=== PATIENT | female | born 1975 | race Caucasian/White ===

== ENCOUNTER 2023-10-06 12:32 | Emergency (ER) | payer OTHER ==
[2023-10-06 12:47] VITALS: RESP 19; TEMP 98.1; BMI 33.5
[2023-10-06] MEDS ORDERED: SODIUM CHLORIDE 0.9% 1000 ML INFUS.BAG IV ONE ×2 (15:09→17:14)
[2023-10-06 15:37] LABS: PH,URINE 6.5 (5.0-8.0); URINE APPEARANCE CLEAR; URINE BILIRUBIN NEGATIVE (NEGATIVE); URINE COLOR YELLOW; URINE GLUCOSE (UA) NEGATIVE (NEGATIVE); URINE KETONE NEGATIVE (NEGATIVE); URINE LEUK ESTERASE NEGATIVE (NEGATIVE); URINE NITRITE NEGATIVE (NEGATIVE); URINE PROTEIN TRACE (NEGATIVE); URINE UROBILINOGEN 0.2 mg/dL (0.2-1.0)
[2023-10-06 15:57] LABS: BASO % 0.9 % (0-2.0); EOS % 9.5 % (0-4.5); HEMATOCRIT 34.3 % (32.4-45.2); HEMOGLOBIN 10.3 GM/dL (10.7-15.3); MCH 20.7 pg (25.7-33.7); MCHC 30.1 g/dl (32.0-36.0); MEAN CELL VOLUME 68.9 fl (80-96); MEAN PLT VOLUME 8.1 fl (7.5-11.1); MONO % 8.6 % (3.8-10.2); PLATELET COUNT 306 10^3/uL (134-434); RBC 4.98 M/mm3 (3.60-5.2); RDW 17.6 % (11.6-15.6); WHITE BLOOD COUNT 8.6 K/mm3 (4.0-10.0)
[2023-10-06 15:58] LABS: POTASSIUM 4.5 mmol/L (3.5-5.1)
[2023-10-06 16:01] LABS: CALCIUM 9.4 mg/dL (8.5-10.1)
[2023-10-06 16:02] LABS: ALBUMIN 3.5 g/dl (3.4-5.0); BLOOD UREA NITROGEN 14.4 mg/dL (7-18)
[2023-10-06 16:05] LABS: THROAT:GRP A STREP NOT DETECTED (NOTDETECTED)
[2023-10-06 16:05] LABS: CREATININE 0.8 mg/dL (0.55-1.3)
[2023-10-06 16:06] LABS: BILIRUBIN,TOTAL 0.2 mg/dL (0.2-1); TOT PROT 7.5 g/dl (6.4-8.2)
[2023-10-06 17:14] LABS: ANISOCYTOSIS 1+; MACROCYTOSIS 0; PLATELET ESTIMATE NORMAL; ROULEAU 1+
[2023-10-06 18:44] VITALS: BP 133/82; PULSE 88
== END 2023-10-06 19:01 | disposition home or self-care (01) ==
LOC: JERFT 12:32
DX: R53.83 Other fatigue (principal); R50.9 Fever, unspecified; R05.9 Cough, unspecified; R51.9 Headache, unspecified; J02.9 Acute pharyngitis, unspecified; E86.0 Dehydration; R71.8 Other abnormality of red blood cells; U07.1 COVID-19
CPT/HCPCS: 0241U-QW; 36415; 80053; 81003; 85025; 87086; 87651; 99283-25